=== PATIENT | male | born 2000 | race Caucasian/White ===

== ENCOUNTER → 2021-02-16 07:44 | Outpatient (BNVA) | payer SELFPAY | PROVIDERS: Visit Provider Internal Medicine ==

== ENCOUNTER 2025-08-11 09:26 | Outpatient (AMB) | payer OTHER, SELFPAY ==
--- NOTE | 2025-08-11 09:32 | A.OFFVIS_ITS ---
Vital Signs 08/11/25 09:35 Height 5 ft 10 in Weight 217 lb BMI 31.1 BP 134/79 Blood Pressure Location Lt brachial Position Sitting Pulse 77 Pulse Source Pulse Oximeter Pulse Oximetry (%) 100 Oxygen Delivery Method Room Air Intake Visit Reasons: Back pain Intake Note: Pain today 5/10 Strategic Advisor Required: No Allergies No Known Allergies Allergy (Verified 08/11/25 09:35) HPI Comments Details: The patient is a 24 year old male presenting for an initial evaluation of chronic low back pain with radiation to the left leg. The pain has been ongoing for two years and is characterized as aching, burning, and numbness. 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 He has tried okov-aoq-txdugtu medications including ibuprofen and Tylenol, as well as topical treatments like Biofreeze and Icy Hot. He completed a course of physical therapy one week ago at [facility] which provided only a few hours of relief post-session. He also received caretaker resort in 2023, which offered only temporary improvement. His past surgical history is limited to wisdom teeth extraction. He reports a history of playing hockey, which involved falls. He sustained a right ankle sprain last week, which is a secondary issue. Social history is notable for minimal alcohol use, and he denies any smoking or marijuana use. An x-ray of his neck and mid and lower back was performed on August 23, 2024, and was normal. His primary care physician had referred him for an MRI, but it has not been scheduled yet. Pain Description - Onset and Timing: Pain has been ongoing for 2 years. - Quality and Character: Described as aching, burning, and numbness, with on-and-off pulling and tugging sensations. - Location and Radiation: Located in the low back and radiates down the left leg to just above the ankle. - Severity: Rated as 5/10 while sitting and resting, improves to 4/10 in the morning, and worsens to 8/10 at night after a workday. - Exacerbating Factors: Prolonged sitting worsens the pain. - Relieving Factors: Stretching, jxju-tgz-mijfkha medications, and physical therapy provide slight, temporary improvement. - Interfering Activities: Pain does not usually affect daily activities, work, or sleep. Pain Management - Affect: The patient states his pain does not usually affect his daily activities, work, or sleep. - Analgesia: The patient uses emxq-mei-gxubcvx ibuprofen and topical agents such as Biofreeze and Icy Hot for pain relief. - Activities of Daily Living: The patient works full-time and is able to get out of his car as needed during the day. - Aberrant Drug Related Behaviors: The patient denies use of marijuana and reports minimal alcohol consumption. Oswestry Low Back Pain Disability Score=11 [facility] Medical History (Updated 08/11/25 @ 10:19 by LUZMARIA Meraz) Radiculopathy of lumbosacral region Sciatica Chronic back pain Seasonal allergies Surgical History Hye teeth removed Review of Systems Const Details: - Musculoskeletal: Reports chronic low back pain and recent right ankle pain. - Musculoskeletal: Denies muscle spasms. - Neurological: Reports aching, burning, and numbness radiating to the left leg. Denies weakness, foot drop, bladder or bowel dysfuntion, or saddle anesthesia. All systems reviewed & are unremarkable except as noted in HPI and below Physical Exam Vital Signs: Last Vital Signs Pulse 77 08/11/25 09:35 BP 134/79 08/11/25 09:35 Pulse Ox 100 08/11/25 09:35 Oxygen Delivery Method Room Air 08/11/25 09:35 BMI result Body Mass Index 31.1 General: Appears afebrile. Alert and oriented. Mood and affect appropriate. Follows and participates in conversation appropriately. Respiratory effort is unlabored. No cough. Able to transition from sit to stand unassisted. Ambulates with bilaterally normal heel strike and toe off, inreased on the right due to acute right ankle pain due to recent sprain. General: Yes no CVA tenderness Back/Spine/Pelvis Other: Limited lumbar ROM due to pain. Lumbar extension and limited flexion elicits left-sided and midline low back pain.Transition from sitting to standing is non-painful. Palpation reveals midline tenderness over the lower lumbar spine. Demonstrates 5/5 strength of quadriceps bilaterally as well as flexion/dorsiflexion of bilateral feet against resistance. 2+ pedal pulses bilaterally. Straight leg rise with dorsiflexion negative bilaterally. Sensation is diminished on the left leg. +2 right +1 left patellar and +2 achilles reflexes bilaterally. Facet loading test positive bilaterally. Fredy?s, Pelvic compression and Stinchfield tests are negative bilaterally. No groin pain with I/E hip rotations. Valsalva maneuver negative. Back: no CVA tenderness Cervical Spine: cervical ROM normal, No Cervical spine tenderness and No step off deformity Thoracic/Lumbar Spine: thoracic and lumbar spine normal to inspection, No Thoracic/lumbar spine scar(s), Lasegue's sign negative, straight leg raise negative bilaterally, pain with thoraco-lumbar ROM, paraspinal muscle tenderness on the left greater than right, thoraco-lumbar ROM limited, No thoracic spinal tenderness and lumbar spinal tenderness at L4 and at L5 Pelvis: no buttock tenderness Sacroiliac joints: bilaterally nontender Extrem General: Yes capillary refill normal, Yes no clubbing, cyanosis or edema and Yes no calf tenderness Results Reviewed Results Reviewed: XR SPINE CERVICAL 2 or 3 views, XR SPINE THORACIC 2 views, XR SPINE 08/23/24 RAYUS LUMBAR 2 or 3 views INDICATION: Mid/low back pain. TECHNIQUE: Three view(s) of the cervical spine, two view(s) of the thoracic spine, and three view(s) of the lumbar spine. COMPARISON: None available. FINDINGS: Cervical spine: The alignment is anatomic. There is no evidence of an acute fracture. Visualized disc spaces are unremarkable. Prevertebral soft tissues are within normal limits. Thoracic spine: The alignment is anatomic. Vertebral body height is normal without compression deformity. Visualized disc spaces are unremarkable. Lumbar spine: The alignment is anatomic. Vertebral body height is normal without compression deformity. Visualized disc spaces are unremarkable. IMPRESSION: Normal radiographs of the cervical, thoracic and lumbar spine. No findings of an acute process by plain radiograph. Consider CT examination or MRI if there is continued clinical concern. Assessment & Plan Assessment & Plan (1) Chronic back pain: Code(s): M54.9 - Dorsalgia, unspecified; G89.29 - Other chronic pain Category: Medical (2) Radiculopathy of lumbosacral region: Code(s): M54.17 - Radiculopathy, lumbosacral region Category: Medical (3) Right ankle pain: Code(s): M25.571 - Pain in right ankle and joints of right foot Category: Medical Plan The patient presents with chronic low back pain with associated left radiculopathy, characterized by pain on extension and flexion and diminished sensation and reflexes on the left side. The differential diagnosis includes disc herniation or early facet joint arthropathy, the latter being a considerat ion despite his age due to a history of sports-related injuries. An MRI of the lumbar spine will be ordered to further evaluate his symptoms, and it will be scheduled at [facility] per the patient's request. He was informed that a follow-up will be arranged after the MRI is completed. He was counseled on proper body mechanics for bending and lifting and activity modifications to alleviate his ongoing symptoms. All questions and concerns have been answered and patient agreed with the treatment plan. Follow up for MRI results and sooner as needed. Patient was informed and verbally consented to the use of an ambient scribe for clinic note documentation during this visit. Orders: Orders MR lumbar spine wo con Today G89.29 - Other chronic pain, M54.17 - Radiculopathy, lumbosacral region, M54.9 - Dorsalgia, unspecified Coding Level of Care Code New Pt Level 4 (52688) Diagnoses Chronic back pain M54.9; G89.29 Radiculopathy of lumbosacral region M54.17 Right ankle pain M25.571
[2025-08-11 09:35] VITALS: BP 134/79; PULSE 77; O2SAT 100; BMI 31.1
--- OUTSIDE RECORDS SUMMARY | 2025-08-11 10:50 | XMS_ITS | Clinical Summary ---
Author Organization [facility] ity Address [address] [place] [address] Care Team Providers Care Precision Grinder External Name Role Phone Unavailable Primary Care Provider Unavailabl e Social History Tobacco Use Types Packs/Day Years Used Date Smoking Tobacco: Never Assessed Sex and Gender Information Value Date Recorded Sex Assigned at Not on file Legal Sex Male 9:12 PM EST Gender Identity Not on file Sexual Orientation Not on file Plan of Treatment Health Maintenance Due Date Last Done Comments HPV Vaccines (1 - Male 3-dos e series) 2013 DTaP,Tdap,and Td Vaccines (1 - Tdap) 2017 Hepatitis B Vaccines (1 of 3 - 19+ 3-dose series) 2017 HIV Screening 09/19/2023 Hepatitis C Screening 09/19/2023 Social Influencers of Health Screening 09/19/2023 Depression Screening 08/25/2024 COVID-19 Vaccine (1 - 2024-2 6 season) 2025 Influenza Vaccine (#1) 2025 RSV Immunization Adult Patie nts (1 - 1-dose 75+ series) 2073 HIB Vaccines Aged Out No longer eligi ble based on patient's age to complete this topic Hepatitis A Vaccines Aged Out No long er eligible based on patient's age to complete this topic IPV Vaccines Aged Out No longer eligi ble based on patient's age to complete this topic MMR Vaccines Aged Out No longer eligi ble based on patient's age to complete this topic Meningococcal ACWY Vaccine Aged Out N o longer eligible based on patient's age to complete this topic Meningococcal B Vaccine Aged Out No l onger eligible based on patient's age to complete this topic Pneumococcal Vaccine: Pediat rics (0 to 5 Years) and At-Risk Patients (6 to 49 Years) Aged Out No longer eligible b ased on patient's age to complete this topic RSV Immunization Patients Un chaitanya 20 months Aged Out No longer eligible b ased on patient's age to complete this topic Varicella Vaccines Aged Out No longer eligible based on patient's age to complete this topic
== END 2025-08-11 09:56 | disposition home or self-care (01) ==
LOC: HO.PMC 09:27
PROVIDERS: PCP Physician Assistant Medical; Visit Provider Nurse Practitioner Family
DX: M54.9 Dorsalgia, unspecified (principal); G89.29 Other chronic pain; M54.17 Radiculopathy, lumbosacral region; M25.571 Pain in right ankle and joints of right foot
CPT/HCPCS: 99204